=== PATIENT | female | born 1980 ===

== ENCOUNTER 2021-08-29 14:10 | Emergency (ER) | payer OTHER | END 2021-08-29 16:06 | disposition left against medical advice (07) | LOC: DL.ED 14:10 | DX: Z53.21 Procedure and treatment not carried out due to patient leaving prior to being seen by health care provider (principal) ==

== ENCOUNTER 2021-08-29 15:29 | Emergency (ER) | payer OTHER | END 2021-08-29 15:35 | disposition left against medical advice (07) | LOC: DL.ED 15:29 | DX: Z53.21 Procedure and treatment not carried out due to patient leaving prior to being seen by health care provider (principal) ==